=== PATIENT | male | born 1990 | race Caucasian/White ===

== ENCOUNTER 2016-10-28 07:11 | Emergency (ER) | payer SELFPAY ==
[~2016-10-28] VITALS: Ht 179.1 cm; Wt 86.2 kg
--- NOTE | 2016-10-28 07:18 | PHYS DOC ---
Adult General Chief Complaint Chief Complaint: NAUSEA/VOMITING/DIARRHA HPI HPI Patient is a 26 year old male presenting to the emergency department for evaluation of nausea vomiting and dizziness that has been going on since yesterday. Patient says that he vomited 5 times last night and says that it was nonbloody nonbilious. He says that he gets intense dizzy spells where he feels the room is spinning and this makes him nauseated and throw up. 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 Patient denies any past medical history or taking any medications. He says that he has a burning sensation in his epigastrium that radiates up into his chest but is not associated with any shortness of breath or diaphoresis. He denies having any similar symptoms in the past. Review of Systems Review of Systems Constitutional: Denies fever or chills [] Eyes: Denies change in visual acuity, redness, or eye pain [] Respiratory: Denies cough or shortness of breath [] Cardiovascular: No CP GI: + abdominal pain, nausea, vomiting. No bloody stools or diarrhea [] Neurologic: Denies headache, focal weakness. + dizziness Current Medications Current Medications Current Medications Medications (Trade) Dose Ordered Sig/Wilfred Start Time Stop Time Status Last Admin Dose Admin Lorazepam (Ativan) 0.5 mg 1X ONCE 10/28/16 07:30 10/28/16 07:36 DC 10/28/16 07:52 0.5 MG Meclizine HCl (Antivert) 25 mg 1X ONCE 10/28/16 07:30 10/28/16 07:36 DC 10/28/16 07:55 25 MG Multi-Ingredient Mouthwash/Gargle (Gi Cocktail Single Dose) 15 ml 1X ONCE 10/28/16 07:30 10/28/16 07:36 DC 10/28/16 07:56 15 ML Ondansetron HCl (Zofran) 8 mg 1X ONCE 10/28/16 07:30 10/28/16 07:36 DC 10/28/16 07:51 8 MG Sodium Chloride 1,000 ml @ 1,000 mls/hr 1X ONCE 10/28/16 07:30 10/28/16 08:29 10/28/16 07:47 1,000 MLS/HR Allergies Allergies Allergies Coded Allergies Type Severity Reaction Last Updated Verified No Known Drug Allergies 10/28/16 No Physical Exam Physical Exam Constitutional: Well developed, well nourished, no acute distress, non-toxic appearance. [] HENT: Normocephalic, atraumatic, bilateral external ears normal, oropharynx moist, no oral exudates, nose normal. [] Eyes: PERRLA, EOMI, conjunctiva normal, no discharge. [] Cardiovascular:Heart rate regular rhythm, no murmur [] Lungs & Thorax: Bilateral breath sounds clear to auscultation [] Abdomen: Bowel sounds normal, soft, + epigastric tenderness, no rebound or guarding, no masses, no pulsatile masses. [] Skin: Warm, dry, no erythema, no rash. [] Neurologic: Alert and oriented X 3, normal motor function, normal sensory function, no focal deficits noted. [] Current Patient Data Vital Signs Vital Signs Date Time Temp Pulse Resp B/P (MAP) Pulse Ox O2 Delivery O2 Flow Rate FiO2 10/28/16 08:06 54 16 121/55 (77) 98 Room Air 10/28/16 07:20 98.5 98.5 Lab Values Laboratory Tests Test 10/28/16 07:38 White Blood Count 6.7 x10^3/uL (4.0-11.0) Red Blood Count 4.39 x10^6/uL (4.30-5.70) Hemoglobin 14.2 g/dL (13.0-17.5) Hematocrit 41.6 % (39.0-53.0) Mean Corpuscular Volume 95 fL (79-100) Mean Corpuscular Hemoglobin 32 pg (25-35) Mean Corpuscular Hemoglobin Concent 34 g/dL (31-37) Red Cell Distribution Width 13.2 % (11.5-14.5) Platelet Count 171 x10^3/uL (140-400) Neutrophils (%) (Auto) 54 % (31-73) Lymphocytes (%) (Auto) 32 % (24-48) Monocytes (%) (Auto) 10 % (0-9) H Eosinophils (%) (Auto) 3 % (0-3) Basophils (%) (Auto) 1 % (0-3) Neutrophils # (Auto) 3.6 x10^3uL (1.8-7.7) Lymphocytes # (Auto) 2.1 x10^3/uL (1.0-4.8) Monocytes # (Auto) 0.7 x10^3/uL (0.0-1.1) Eosinophils # (Auto) 0.2 x10^3/uL (0.0-0.7) Basophils # (Auto) 0.1 x10^3/uL (0.0-0.2) Sodium Level 139 mmol/L (136-145) Potassium Level 3.7 mmol/L (3.5-5.1) Chloride Level 103 mmol/L (98-107) Carbon Dioxide Level 29 mmol/L (21-32) Anion Gap 7 (6-14) Blood Urea Nitrogen 20 mg/dL (8-26) Creatinine 1.0 mg/dL (0.7-1.3) Estimated GFR (Cockcroft-Gault) 91.0 BUN/Creatinine Ratio 20 (6-20) Glucose Level 100 mg/dL (70-99) H Calcium Level 9.0 mg/dL (8.5-10.1) Magnesium Level 2.0 mg/dL (1.8-2.4) Total Bilirubin 0.4 mg/dL (0.2-1.0) Aspartate Amino Transferase (AST) 26 U/L (15-37) Alanine Aminotransferase (ALT) 30 U/L (16-63) Alkaline Phosphatase 47 U/L (46-116) Creatine Kinase 549 U/L (39-308) H Total Protein 6.6 g/dL (6.4-8.2) Albumin 3.8 g/dL (3.4-5.0) Albumin/Globulin Ratio 1.4 (1.0-1.7) Lipase 1096 U/L (73-393) H Ethyl Alcohol Level < 10 mg/dL (0-10) Laboratory Tests 10/28/16 07:38 Laboratory Tests 10/28/16 07:38 EKG EKG Sinus bradycardia at 47 bpm with normal axis normal intervals with no ST elevation or depression and normal T waves. Radiology/Procedures Radiology/Procedures [] Course & Med Decision Making Course & Med Decision Making Patient symptoms are consistent with peripheral vertigo. We'll check labs EKG and reassess. Labs are mostly unremarkable except for elevated lipase level. He says that he does drink alcohol and does not eat a very good diet. Patient told that he should rest his GI tract and only drink water and Gatorade today and to avoid alcohol. He has no right upper quadrant tenderness on exam but he does have some mild epigastric tenderness but no rebound or guarding. Patient says his dizziness is much better after treatment here and he is able to drink fluids without any difficulty so he'll be discharged with diet instructions addition to Prilosec Zofran [place] and meclizine. Patient says he is traveling from [place] and I told him that he needs to follow with a primary care provider later this week and go to the nearest emergency department with worsening pain fevers vomiting or general concerns. Patient aware and agreeable with plan and verbalized understanding of the above instructions. Dragon Disclaimer Gabriellaon Disclaimer This electronic medical record was generated, in whole or in part, using a voice recognition dictation system. Departure Departure Impression: Primary Impression: Vertigo Additional Impression: Pancreatitis Disposition: 01 HOME, SELF-CARE Condition: GOOD Patient Instructions: Acute Pancreatitis, Benign Positional Vertigo Additional Instructions: DRINK ONLY WATER AND GATORADE TODAY. WHEN YOU START EATING AGAIN, EAT SOFT NON- IRRITATING FOODS. FOLLOW WITH A PCP AND/OR GI DOCTOR IN THE NEXT 1-2 WEEKS AND COME BACK TO THE ED SOONER WITH ANY NEW OR WORSENING PAIN, FEVERS, VOMITING, OR OTHER GENERAL CONCERNS. THANK YOU! Scripts Meclizine Hcl (MECLIZINE HCL) 25 Mg Tablet 1 TAB PO PRN TID Y for VERTIGO, #12 TAB Prov: MARY LOO DO 10/28/16 Omeprazole Magnesium (PRILOSEC OTC) 20 Mg Tablet.dr 1 TAB PO DAILY, #30 TAB 2 Refills Prov: MARY LOO DO 10/28/16 Ondansetron (ZOFRAN ODT) 4 Mg Tab.rapdis 4 MG PO BID Y for NAUSEA/VOMITING, #10 TAB Prov: MARY LOO DO 10/28/16 Hydrocodone/Apap 5-325 (NORCO 5-325 TABLET) 1 Each Tablet 1 TAB PO PRN Q6HRS Y for PAIN, #14 TAB 0 Refills Prov: MARY LOO DO 10/28/16 Problem Qualifiers MARY LOO DO October 28, 2016 07:17
[2016-10-28] MEDS ORDERED: IV NORMAL SALINE 1000ML BAG 1,000 ML IV ONE (07:30)
[2016-10-28] MEDS ORDERED: ONDANSETRON PF 4 MG/2 ML VIAL. IV ONE (07:30)
[2016-10-28] MEDS ORDERED: MECLIZINE HCL 12.5 MG TABLET. PO ONE (07:30)
[2016-10-28] MEDS ORDERED: LIDO:MAALOX:DONNATAL 1:1:1 15 ML SINGLE DOSE SWSW ONE (07:30)
[2016-10-28 08:04] LABS: BASO # 0.1 x10^3/uL (0.0-0.2); BASO % 1 % (0-3); EOS % 3 % (0-3); HEMATOCRIT 41.6 % (39.0-53.0); HEMOGLOBIN 14.2 g/dL (13.0-17.5); LYMPH # 2.1 x10^3/uL (1.0-4.8); LYMPH % 32 % (24-48); MEAN CORPUSCULAR HEMOGLOBIN 32 pg (25-35); MEAN CORPUSCULAR HGB CONC 34 g/dL (31-37); MEAN CORPUSCULAR VOLUME 95 fL (79-100); MONO % 10 % (0-9); NEUT % 54 % (31-73); PLATELET COUNT 171 x10^3/uL (140-400); RED BLOOD COUNT 4.39 x10^6/uL (4.30-5.70); RED CELL DISTRIBUTION WIDTH 13.2 % (11.5-14.5); WHITE BLOOD COUNT 6.7 x10^3/uL (4.0-11.0)
[2016-10-28 08:07] LABS: POTASSIUM 3.7 mmol/L (3.5-5.1)
[2016-10-28 08:14] LABS: ALBUMIN 3.8 g/dL (3.4-5.0); ALBUMIN/GLOBULIN RATIO 1.4 (1.0-1.7); TOTAL BILIRUBIN 0.4 mg/dL (0.2-1.0); TOTAL PROTEIN 6.6 g/dL (6.4-8.2)
--- NOTE | 2016-10-28 08:22 | EKG ---
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
[2016-10-28] MEDS ORDERED: MECL25TA3 PO (08:25)
[2016-10-28] MEDS ORDERED: OMEP20TA63 PO (08:25)
[2016-10-28] MEDS ORDERED: ONDA4TAB10 PO (08:25)
[2016-10-28] MEDS ORDERED: HYDR-971 PO (08:25)
[2016-10-28 09:25] VITALS: BP 112/69
[2016-10-31] MEDS ORDERED: HYDR-971 PO (10:17)
== END 2016-10-28 09:29 | disposition home or self-care (01) ==
LOC: ER 08:02
DX: K85.90 Acute pancreatitis without necrosis or infection, unspecified (principal); R42 Dizziness and giddiness
CPT/HCPCS: 36415; 80053; 80320; 82550; 83690; 83735; 85027; 93005; 96361; 96374; 96375; 99285; J2060; J2405; J7030; J8597; G0480

== ENCOUNTER 2016-10-30 10:25 | Inpatient (IN) | payer SELFPAY ==
[~2016-10-30] VITALS: Ht 177.8 cm; Wt 86.2 kg
[2016-10-30] VITALS (9 sets, daily range): BP systolic 128–139; BP diastolic 67–80
[~2016-10-30 10:25] MED LIST: HYDR-971 PO; MECL25TA3 PO; OMEP20TA63 PO; ONDA4TAB10 PO
--- NOTE | 2016-10-30 11:13 | PHYS DOC ---
Past Medical History Past Medical History: Asthma, Pancreatitis, Other Additional Past Medical Histor: hypoglycemia, "borderline diabetic" Past Surgical History: Other Additional Past Surgical Histo: left hand fracture Alcohol Use: Occasionally Drug Use: Marijuana Adult General Chief Complaint Chief Complaint: NAUSEA/VOMITING/DIARRHA HPI HPI Patient is a 26 year old male who presents with vomiting with blood greater than 1 cup, burning upper abdominal pain. Denies black tarry stools. No h/o PUD known. Seen on 10/28 and diagnosed with pancreatitis but dc'd home as pt feeling ok. Symptoms worsen at this time. Denies recent etoh, reports only occasional etoh. Denies previous abdominal surgeries. Refused rectal exam Review of Systems Review of Systems Constitutional: Denies fever or chills [] Eyes: Denies change in visual acuity, redness, or eye pain [] HENT: Denies nasal congestion or sore throat [] Respiratory: Denies cough or shortness of breath [] Cardiovascular: No additional information not addressed in HPI [] GI: per hpi : Denies dysuria or hematuria [] Musculoskeletal: Denies back pain or joint pain [] Integument: Denies rash or skin lesions [] Neurologic: Denies headache, focal weakness or sensory changes [] Endocrine: Denies polyuria or polydipsia [] Current Medications Current Medications Current Medications Medications (Trade) Dose Ordered Sig/Wilfred Start Time Stop Time Status Last Admin Dose Admin Bupivacaine HCl/ Epinephrine Bitart (Marcaine-Epi 0.5%-[id number]) 50 ml STK-MED ONCE 10/30/16 13:15 10/30/16 13:16 DC Cellulose 1 each STK-MED ONCE 10/30/16 13:13 10/30/16 13:14 DC Famotidine (Pepcid) 20 mg BID 10/30/16 21:00 Fentanyl Citrate (Fentanyl 2ml Vial) 50 mcg PRN Q5MIN PRN 10/30/16 13:15 10/31/16 13:14 Hydromorphone HCl (Dilaudid) 0.5 mg PRN Q10MIN PRN 10/30/16 13:15 10/31/16 13:14 Iohexol (Omnipaque 300 Mg/ml) 50 ml STK-MED ONCE 10/30/16 13:13 10/30/16 13:14 DC Lidocaine HCl 2 ml PRN 1X PRN 10/30/16 13:15 10/31/16 13:14 Morphine Sulfate 1 mg PRN Q10MIN PRN 10/30/16 13:15 10/31/16 13:14 Nicotine (Nicoderm Cq 21mg) 1 patch PRN DAILY PRN 10/30/16 13:45 Nicotine Polacrilex (Nicorette Gum) 1 each PRN Q1HR PRN 10/30/16 13:45 Ondansetron HCl (Zofran) 4 mg PRN Q6HRS PRN 10/30/16 13:15 10/31/16 13:14 Prochlorperazine Edisylate (Compazine) 5 mg PACU PRN PRN 10/30/16 13:15 10/31/16 13:14 Ringer's Solution 1,000 ml @ 0 mls/hr Q0M 10/30/16 13:04 10/30/16 13:12 DC Sodium Chloride 1,000 ml @ 125 mls/hr CONT PRN 10/30/16 13:15 Allergies Allergies Allergies Coded Allergies Type Severity Reaction Last Updated Verified No Known Drug Allergies 10/28/16 No Physical Exam Physical Exam Constitutional: Well developed, well nourished, no acute distress, non-toxic appearance. [] HENT: Normocephalic, atraumatic, bilateral external ears normal, oropharynx moist, no oral exudates, nose normal. [] Eyes: PERRLA, EOMI, conjunctiva normal, no discharge. [] Neck: Normal range of motion, no tenderness, supple, no stridor. [] Cardiovascular:Heart rate regular with regular rhythm, no murmur [] Lungs & Thorax: Bilateral breath sounds clear to auscultation [] Abdomen: Bowel sounds normal, soft, nondistended, TTP LUQ and epigastric region , neg murphys on my exam, no guarding or peritoneal signs. Skin: Warm, dry, no erythema, no rash. [] Back: No tenderness, no CVA tenderness. [] Extremities: No tenderness, no cyanosis, no clubbing, ROM intact, no edema. [] Neurologic: Alert and oriented X 3, normal motor function, normal sensory function, no focal deficits noted. [] Current Patient Data Vital Signs Vital Signs Date Time Temp Pulse Resp B/P (MAP) Pulse Ox O2 Delivery O2 Flow Rate FiO2 5/17/17 13:43 20 15 Room Air 10/30/16 13:14 54 127/71 (89) 10/30/16 10:30 98.3 98.3 Lab Values Laboratory Tests Test 10/30/16 11:00 White Blood Count 5.6 x10^3/uL (4.0-11.0) Red Blood Count 4.47 x10^6/uL (4.30-5.70) Hemoglobin 14.5 g/dL (13.0-17.5) Hematocrit 42.0 % (39.0-53.0) Mean Corpuscular Volume 94 fL (79-100) Mean Corpuscular Hemoglobin 32 pg (25-35) Mean Corpuscular Hemoglobin Concent 35 g/dL (31-37) Red Cell Distribution Width 13.0 % (11.5-14.5) Platelet Count 166 x10^3/uL (140-400) Neutrophils (%) (Auto) 66 % (31-73) Lymphocytes (%) (Auto) 26 % (24-48) Monocytes (%) (Auto) 5 % (0-9) Eosinophils (%) (Auto) 2 % (0-3) Basophils (%) (Auto) 1 % (0-3) Neutrophils # (Auto) 3.7 x10^3uL (1.8-7.7) Lymphocytes # (Auto) 1.5 x10^3/uL (1.0-4.8) Monocytes # (Auto) 0.3 x10^3/uL (0.0-1.1) Eosinophils # (Auto) 0.1 x10^3/uL (0.0-0.7) Basophils # (Auto) 0.0 x10^3/uL (0.0-0.2) Sodium Level 140 mmol/L (136-145) Potassium Level 4.4 mmol/L (3.5-5.1) Chloride Level 106 mmol/L (98-107) Carbon Dioxide Level 28 mmol/L (21-32) Anion Gap 6 (6-14) Blood Urea Nitrogen 19 mg/dL (8-26) Creatinine 0.9 mg/dL (0.7-1.3) Estimated GFR (Cockcroft-Gault) 102.8 Glucose Level 98 mg/dL (70-99) Calcium Level 8.8 mg/dL (8.5-10.1) Total Bilirubin 0.4 mg/dL (0.2-1.0) Direct Bilirubin 0.1 mg/dL (0.0-0.2) Aspartate Amino Transferase (AST) 16 U/L (15-37) Alanine Aminotransferase (ALT) 27 U/L (16-63) Alkaline Phosphatase 49 U/L (46-116) Total Protein 6.9 g/dL (6.4-8.2) Albumin 3.8 g/dL (3.4-5.0) Lipase 142 U/L (73-393) Laboratory Tests 10/30/16 11:00 Laboratory Tests 10/30/16 11:00 EKG EKG [] Radiology/Procedures Radiology/Procedures ABd US: Examination: Ultrasound right upper quadrant History: History of pancreatitis. Comparison: None available Findings: The pancreas is not well visualized due to bowel gas. Small echogenicities identified within the gallbladder likely gallstones. The gallbladder wall thickness measures 4 mm , mild thickened Examination is positive for ultrasonographic evidence of [place]'s sign however no evidence of pericholecystic fluid identified. The right kidney measures 11.9 cm in length. The visualized liver grossly appears unremarkable. The visualized IVC appears patent. Impression: Small echogenicities identified within the gallbladder likely gallstones. There is mild thickened appearance of the gallbladder wall. Examination is positive ultrasonographic evidence of [place]'s and however no evidence of pericholecystic fluid identified. Cholecystitis is not completely excluded. Course & Med Decision Making Course & Med Decision Making Pertinent Labs and Imaging studies reviewed. (See chart for details) Pt given IV pain meds, antiemetics, IV fluids. Lipase now improved however abd US abnormal and with recent pancreatitis, I contacted Dr. West to discuss. She agrees and recommends admission for cholecystectomy. I discussed with pt and he is agreeable. No clear sign of infection at this time and antibiotics not given. Pt NPO, accepted for admission by Dr. Cha. Janene Disclaimer Janene Disclaimer This electronic medical record was generated, in whole or in part, using a voice recognition dictation system. Departure Departure Impression: Primary Impression: Cholecystitis Disposition: 09 ADMITTED INPATIENT Admitting Physician: Chantel Cha Condition: STABLE Referrals: NO PCP (PCP) KASSANDRA FROST MD October 30, 2016 11:13
[2016-10-30] MEDS ORDERED: fentaNYL PF VIAL 100 MCG/2 ML VIAL IV ONE (11:15)
[2016-10-30] MEDS ORDERED: IV NORMAL SALINE 1000ML BAG 1,000 ML IV ONE ×2 (11:15→12:45)
[2016-10-30] MEDS ORDERED: FAMOTIDINE 20 MG/2 ML VIAL IVP ONE (11:15)
[2016-10-30] MEDS ORDERED: ONDANSETRON PF 4 MG/2 ML VIAL. IV ONE (11:15)
[2016-10-30 11:24] LABS: BASO % 1 % (0-3); EOS % 2 % (0-3); HEMOGLOBIN 14.5 g/dL (13.0-17.5); LYMPH # 1.5 x10^3/uL (1.0-4.8); LYMPH % 26 % (24-48); MEAN CORPUSCULAR HEMOGLOBIN 32 pg (25-35); MEAN CORPUSCULAR HGB CONC 35 g/dL (31-37); MEAN CORPUSCULAR VOLUME 94 fL (79-100); MONO % 5 % (0-9); NEUT % 66 % (31-73); PLATELET COUNT 166 x10^3/uL (140-400); RED BLOOD COUNT 4.47 x10^6/uL (4.30-5.70); WHITE BLOOD COUNT 5.6 x10^3/uL (4.0-11.0)
[2016-10-30 11:34] LABS: CALCIUM 8.8 mg/dL (8.5-10.1); CREATININE 0.9 mg/dL (0.7-1.3); GFR 102.8; POTASSIUM 4.4 mmol/L (3.5-5.1)
[2016-10-30 11:41] LABS: ALBUMIN 3.8 g/dL (3.4-5.0); DIRECT BILIRUBIN 0.1 mg/dL (0.0-0.2); TOTAL BILIRUBIN 0.4 mg/dL (0.2-1.0); TOTAL PROTEIN 6.9 g/dL (6.4-8.2)
--- NOTE | 2016-10-30 12:04 | RAD ---
Examination: Ultrasound right upper quadrant History: History of pancreatitis. Comparison: None available Findings: The pancreas is not well visualized due to bowel gas. Small echogenicities identified within the gallbladder likely gallstones. The gallbladder wall thickness measures 4 mm , mild thickened Examination is positive for ultrasonographic evidence of [place]'s sign however no evidence of pericholecystic fluid identified. The right kidney measures 11.9 cm in length. The visualized liver grossly appears unremarkable. The visualized IVC appears patent. Impression: Small echogenicities identified within the gallbladder likely gallstones. There is mild thickened appearance of the gallbladder wall. Examination is positive ultrasonographic evidence of [place]'s and however no evidence of pericholecystic fluid identified. Cholecystitis is not completely excluded.
[2016-10-30] MEDS ORDERED: ONDANSETRON PF 4 MG/2 ML VIAL. IV PRN ×2 (12:45→13:15)
[2016-10-30] MEDS ORDERED: IV RINGERS,LACTATED 1000ML 1,000 ML IV SCH (13:04)
[2016-10-30] MEDS ORDERED: SURGICEL HEMOSTAT 4X8 EACH. ONE (13:13)
[2016-10-30] MEDS ORDERED: IOHEXOL 300 MG/ML 50 ML VIAL. ONE (13:13)
[2016-10-30] MEDS ORDERED: HYDROmorphone 2 MG/ML VIAL IV PRN (13:15)
[2016-10-30] MEDS ORDERED: LIDOCAINE 1% 1 ML SYRINGE. ID PRN (13:15)
[2016-10-30] MEDS ORDERED: fentaNYL PF VIAL 100 MCG/2 ML VIAL IV PRN (13:15)
[2016-10-30] MEDS ORDERED: IV NORMAL SALINE 1000ML BAG 1,000 ML IV PRN (13:15)
[2016-10-30] MEDS ORDERED: BUPIVACAINE-EPI 0.5%-1:200000 50 ML VIAL. ONE (13:15)
[2016-10-30] MEDS ORDERED: MORPHINE SULFATE 2 MG/ML DISP.SYRIN. IV PRN (13:15)
[2016-10-30] MEDS ORDERED: PROCHLORPERAZINE 10 MG/2 ML VIAL. IV PRN (13:15)
[2016-10-30] MEDS: MORPHINE SULFATE 4 MG/ML DISP.SYRIN. IV PRN ×2 (13:43→17:55)
[2016-10-30] MEDS ORDERED: NICOTINE 21MG PATCH. TD PRN (13:45)
[2016-10-30] MEDS ORDERED: NICOTINE POLACRILEX 2MG GUM PACKAGE of 12. BC PRN (13:45)
--- NOTE | 2016-10-30 13:52 | PDOC1 ---
History and Physical Date of Admission Date of Admission DATE: 10/30/16 TIME: 13:37 Identification/Chief Complaint Chief Complaint hematemesis, abd pain Problems: Source Source: Chart review, Patient History of Present Illness History of Present Illness Mr. Crowley, is a 26 year old male admit with acute hematemesis X1, , acute and burning upper abdominal pain. Burning pain, intermittent but severe, pain 9/10, better with IV morphine given in ER. 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 [employer], Past Medical History Cardiovascular: No pertinent hx Pulmonary: No pertinent hx GI: No pertinent hx Heme/Onc: No pertinent hx Hepatobiliary: No pertinent hx Psych: No pertinent hx, Other (tobacco only) Rheumatologic: No pertinent hx Infectious disease: No pertinent hx Family History Family History: Hypertension Social History Smoke: 1 pack per day ALCOHOL: social Drugs: None Current Medications Current Medications Current Medications Ondansetron HCl (Zofran) 4 mg 1X ONCE IV Last administered on 10/30/16 11:55 ; Start 10/30/16 at 11:15; Stop 10/30/16 at 11:16; Status DC Sodium Chloride 1,000 ml @ 1,000 mls/hr 1X ONCE IV Last administered on 11:55; Start 10/30/16 at 11:15; Stop 10/30/16 at 12:14; Status DC Famotidine (Pepcid) 20 mg 1X ONCE IVP Last administered on 10/30/16 11:56; Start 10/30/16 at 11:15; Stop 10/30/16 at 11:16; Status DC Fentanyl Citrate (Fentanyl 2ml Vial) 50 mcg 1X ONCE IV Last administered on 11:55; Start 10/30/16 at 11:15; Stop 10/30/16 at 11:16; Status DC Ondansetron HCl (Zofran) 4 mg PRN Q8HRS PRN IV NAUSEA/VOMITING; Start 10/30/16 at 12:45; Stop 10/31/16 at 12:44 Morphine Sulfate 4 mg PRN Q2HR PRN IV PAIN; Start 10/30/16 at 12:45; Stop 10/31 at 12:44 Sodium Chloride 1,000 ml @ 125 mls/hr 1X ONCE IV ; Start 10/30/16 at 12:45; Stop 10/30/16 at 20:44 Ondansetron HCl (Zofran) 4 mg PRN Q6HRS PRN IV NAUSEA/VOMITING; Start 10/30/16 at 13:15; Stop 10/31/16 at 13:14 Fentanyl Citrate (Fentanyl 2ml Vial) 25 mcg PRN Q5MIN PRN IV MILD PAIN; Start 10/30/16 at 13:15; Stop 10/31/16 at 13:14 Fentanyl Citrate (Fentanyl 2ml Vial) 50 mcg PRN Q5MIN PRN IV MODERATE PAIN; Start 10/30/16 at 13:15; Stop 10/31/16 at 13:14 Morphine Sulfate 1 mg PRN Q10MIN PRN IV SEVERE PAIN; Start 10/30/16 at 13:15; Stop 10/31/16 at 13:14 Ringer's Solution 1,000 ml @ 0 mls/hr Q0M IV ; Start 10/30/16 at 13:04; Stop at 13:12; Status DC Lidocaine HCl 2 ml PRN 1X PRN ID PRIOR TO IV START; Start 10/30/16 at 13:15; Stop 10/31/16 at 13:14 Hydromorphone HCl (Dilaudid) 0.5 mg PRN Q10MIN PRN IV SEV PAIN, Second choice; Start 10/30/16 at 13:15; Stop 10/31/16 at 13:14 Prochlorperazine Edisylate (Compazine) 5 mg PACU PRN PRN IV NAUSEA, MRX1; Start 10/30/16 at 13:15; Stop 10/31/16 at 13:14 Famotidine (Pepcid) 20 mg BID IVP ; Start 10/30/16 at 21:00 Sodium Chloride 1,000 ml @ 125 mls/hr CONT PRN IV .; Start 10/30/16 at 13:15 Cellulose 1 each STK-MED ONCE .ROUTE ; Start 10/30/16 at 13:13; Stop 10/30/16 at 13:14; Status DC Iohexol (Omnipaque 300 Mg/ml) 50 ml STK-MED ONCE .ROUTE ; Start 10/30/16 at 13: 13; Stop 10/30/16 at 13:14; Status DC Bupivacaine HCl/ Epinephrine Bitart (Marcaine-Epi 0.5%-1:[id number]) 50 ml STK-MED ONCE .ROUTE ; Start 10/30/16 at 13:15; Stop 10/30/16 at 13:16; Status DC Active Scripts Active Meclizine Hcl 25 Mg Tablet 1 Tab PO PRN TID PRN Prilosec Otc (Omeprazole Magnesium) 20 Mg Tablet.dr 1 Tab PO DAILY Zofran Odt (Ondansetron) 4 Mg Tab.rapdis 4 Mg PO BID PRN [place] 5-325 Tablet (Acetaminophen/Hydrocodone Bitart) 1 Each Tablet 1 Tab PO PRN Q6HRS PRN Allergies Allergies: Coded Allergies: No Known Drug Allergies (Unverified , 10/28/16) ROS General: YES: Appetite, No: Chills, Night Sweats, Fatigue, Malaise, Other PSYCHOLOGICAL ROS: No: Anxiety, Behavioral Disorder, Concentration difficultie , Decreased libido, Depression, Disorientation, Hallucinations, Hostility, Irritablity, Memory difficulties, Mood Swings, Obsessive thoughts, Physical abuse, Sexual abuse, Sleep disturbances, Suicidal ideation, Other Eyes: No Blurry vision, No Decreased vision, No Double vision, No Dry eyes, No Excessive tearing, No Eye Pain, No Itchy Eyes, No Loss of vision, No Photophobia , No Scotomata, No Uses contacts, No Uses glasses, No Other HEENT: No: Heacaches, Visual Changes, Hearing change, Nasal congestion, Nasal discharge, Oral lesions, Sinus pain, Sore Throat, Epistaxis, Sneezing, Snoring, Tinnitus, Vertigo, Vocal changes, Other Respiratory: No: Cough, Hemoptysis, Orthopnea, Pleuritic Pain, Shortness of breath, SOB with excertion, Sputum Changes, Stridor, Tachypnea, Wheezing, Other Cardiovascular: No Chest Pain, No Palpitations, No Orthopnea, No Paroxysmal Noc. Dyspnea, No Edema, No Lt Headedness, No Other Gastrointestinal: Yes Vomiting, Yes Other (hematemesis) Musculoskeletal: No Gait Disturbance, No Joint Pain, No Joint Stiffness, No Joint Swelling, No Muscle Pain, No Muscular Weakness, No Pain In:, No Swelling In:, No Other Neurological: No Behavorial Changes, No Bowel/Bladder ControlChng, No Confusion , No Dizziness, No Gait Disturbance, No Headaches, No Impaired Coord/balance, No Memory Loss, No Numbness/Tingling, No Seizures, No Speech Problems, No Tremors, No Visual Changes, No Weakness, No Other Skin: No Dry Skin, No Eczema, No Hair Changes, No Lumps, No Mole Changes, No Mottling, No Nail Changes, No Pruritus, No Rash, No Skin Lesion Changes, No Other, No Acne Physical Exam General: Alert, Oriented X3, Cooperative HEENT: Atraumatic, PERRLA Lungs: Clear to auscultation Abdomen: Normal bowel sounds, Soft, Other (tender) Rectal Exam: not examined Extremities: No clubbing, No cyanosis, No edema, Normal pulses Skin: Other ([place] tattoos) Neuro: Normal speech, Normal tone, Sensation intact Psych/Mental Status: Mental status NL, Mood NL Vitals Vitals Vital Signs Date Time Temp Pulse Resp B/P (MAP) Pulse Ox O2 Delivery O2 Flow Rate FiO2 10/30/16 13:14 54 14 127/71 (89) 99 Room Air 10/30/16 10:30 98.3 98.3 Labs Labs Laboratory Tests Test 10/30/16 11:00 White Blood Count 5.6 x10^3/uL (4.0-11.0) Red Blood Count 4.47 x10^6/uL (4.30-5.70) Hemoglobin 14.5 g/dL (13.0-17.5) Hematocrit 42.0 % (39.0-53.0) Mean Corpuscular Volume 94 fL (79-100) Mean Corpuscular Hemoglobin 32 pg (25-35) Mean Corpuscular Hemoglobin Concent 35 g/dL (31-37) Red Cell Distribution Width 13.0 % (11.5-14.5) Platelet Count 166 x10^3/uL (140-400) Neutrophils (%) (Auto) 66 % (31-73) Lymphocytes (%) (Auto) 26 % (24-48) Monocytes (%) (Auto) 5 % (0-9) Eosinophils (%) (Auto) 2 % (0-3) Basophils (%) (Auto) 1 % (0-3) Neutrophils # (Auto) 3.7 x10^3uL (1.8-7.7) Lymphocytes # (Auto) 1.5 x10^3/uL (1.0-4.8) Monocytes # (Auto) 0.3 x10^3/uL (0.0-1.1) Eosinophils # (Auto) 0.1 x10^3/uL (0.0-0.7) Basophils # (Auto) 0.0 x10^3/uL (0.0-0.2) Sodium Level 140 mmol/L (136-145) Potassium Level 4.4 mmol/L (3.5-5.1) Chloride Level 106 mmol/L (98-107) Carbon Dioxide Level 28 mmol/L (21-32) Anion Gap 6 (6-14) Blood Urea Nitrogen 19 mg/dL (8-26) Creatinine 0.9 mg/dL (0.7-1.3) Estimated GFR (Cockcroft-Gault) 102.8 Glucose Level 98 mg/dL (70-99) Calcium Level 8.8 mg/dL (8.5-10.1) Total Bilirubin 0.4 mg/dL (0.2-1.0) Direct Bilirubin 0.1 mg/dL (0.0-0.2) Aspartate Amino Transf (AST/SGOT) 16 U/L (15-37) Alanine Aminotransferase (ALT/SGPT) 27 U/L (16-63) Alkaline Phosphatase 49 U/L (46-116) Total Protein 6.9 g/dL (6.4-8.2) Albumin 3.8 g/dL (3.4-5.0) Lipase 142 U/L (73-393) Laboratory Tests Test 10/30/16 11:00 White Blood Count 5.6 x10^3/uL (4.0-11.0) Red Blood Count 4.47 x10^6/uL (4.30-5.70) Hemoglobin 14.5 g/dL (13.0-17.5) Hematocrit 42.0 % (39.0-53.0) Mean Corpuscular Volume 94 fL (79-100) Mean Corpuscular Hemoglobin 32 pg (25-35) Mean Corpuscular Hemoglobin Concent 35 g/dL (31-37) Red Cell Distribution Width 13.0 % (11.5-14.5) Platelet Count 166 x10^3/uL (140-400) Neutrophils (%) (Auto) 66 % (31-73) Lymphocytes (%) (Auto) 26 % (24-48) Monocytes (%) (Auto) 5 % (0-9) Eosinophils (%) (Auto) 2 % (0-3) Basophils (%) (Auto) 1 % (0-3) Neutrophils # (Auto) 3.7 x10^3uL (1.8-7.7) Lymphocytes # (Auto) 1.5 x10^3/uL (1.0-4.8) Monocytes # (Auto) 0.3 x10^3/uL (0.0-1.1) Eosinophils # (Auto) 0.1 x10^3/uL (0.0-0.7) Basophils # (Auto) 0.0 x10^3/uL (0.0-0.2) Sodium Level 140 mmol/L (136-145) Potassium Level 4.4 mmol/L (3.5-5.1) Chloride Level 106 mmol/L (98-107) Carbon Dioxide Level 28 mmol/L (21-32) Anion Gap 6 (6-14) Blood Urea Nitrogen 19 mg/dL (8-26) Creatinine 0.9 mg/dL (0.7-1.3) Estimated GFR (Cockcroft-Gault) 102.8 Glucose Level 98 mg/dL (70-99) Calcium Level 8.8 mg/dL (8.5-10.1) Total Bilirubin 0.4 mg/dL (0.2-1.0) Direct Bilirubin 0.1 mg/dL (0.0-0.2) Aspartate Amino Transf (AST/SGOT) 16 U/L (15-37) Alanine Aminotransferase (ALT/SGPT) 27 U/L (16-63) Alkaline Phosphatase 49 U/L (46-116) Total Protein 6.9 g/dL (6.4-8.2) Albumin 3.8 g/dL (3.4-5.0) Lipase 142 U/L (73-393) VTE Prophylaxis Ordered VTE Prophylaxis Devices: Yes VTE Pharmacological Prophylaxi: Contraindicated Assessment/Plan Assessment/Plan pancreatitis cholecystitis nausea and vomiting hematemesis, possible minoo fernández tear, but maybe GERD, start IV PPI and consult GI tobaccoism, patch and gum consult surg for keegan, FERNANDA Newton MD October 30, 2016 13:52
[2016-10-30] MEDS ORDERED: fentaNYL PF VIAL 250 MCG/5 ML VIAL ONE (14:13)
[2016-10-30] MEDS ORDERED: ROCURONIUM 50 MG/5 ML VIAL. ONE (14:13)
[2016-10-30] MEDS ORDERED: LIDOCAINE 2% PF Vial for OR 5 ML VIAL. ONE (14:14)
[2016-10-30] MEDS ORDERED: PROPOFOL 20 ML IV ONE ×2 (14:14→16:27)
[2016-10-30] MEDS ORDERED: ISOFLURANE 61 TO 120 MINUTES. IH ONE (14:14)
[2016-10-30] MEDS ORDERED: ONDANSETRON PF 4 MG/2 ML VIAL. ONE (14:14)
[2016-10-30] MEDS ORDERED: DEXAMETHASONE SOD PHOS 20 MG/5 ML VIAL. ONE (14:14)
--- NOTE | 2016-10-30 14:37 | PDOC2 ---
JAY PARKER ELECTRICAL TEST TECHNICIAN 10/30/16 1437: CONSULT Date of Consult Date of Consult DATE: 10/30/16 TIME: 14:32 Reason for Consult Reason for Consult: cholelithiasis Referring Physician Referring Physician: ER Identification/Chief Complaint Chief Complaint abdominal pain Source Source: Chart review, Patient History of Present Illness Reason for Visit: here 2 days ago with abdominal pain, epigastric, burning, found to have pancreatitis. Discharged home, yesterday felt better, but today was dizzy, had 1 episode of hematemesis and severe burning epigastric pain that radiated to his right abdomen. prior to this he has never had any similar pain in past. Can not tell me any aggravating factors, alleviating factors are meds and Gatorade. 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: social Drugs: Marijuana Lives: Alone Current Medications Current Medications Current Medications Ondansetron HCl (Zofran) 4 mg 1X ONCE IV Last administered on 10/30/16 11:55 ; Start 10/30/16 at 11:15; Stop 10/30/16 at 11:16; Status DC Sodium Chloride 1,000 ml @ 1,000 mls/hr 1X ONCE IV Last administered on 11:55; Start 10/30/16 at 11:15; Stop 10/30/16 at 12:14; Status DC Famotidine (Pepcid) 20 mg 1X ONCE IVP Last administered on 10/30/16 11:56; Start 10/30/16 at 11:15; Stop 10/30/16 at 11:16; Status DC Fentanyl Citrate (Fentanyl 2ml Vial) 50 mcg 1X ONCE IV Last administered on 11:55; Start 10/30/16 at 11:15; Stop 10/30/16 at 11:16; Status DC Ondansetron HCl (Zofran) 4 mg PRN Q8HRS PRN IV NAUSEA/VOMITING; Start 10/30/16 at 12:45; Stop 10/31/16 at 12:44 Morphine Sulfate 4 mg PRN Q2HR PRN IV PAIN Last administered on 10/30/16t 13:43 ; Start 10/30/16 at 12:45; Stop 10/31/16 at 12:44 Sodium Chloride 1,000 ml @ 125 mls/hr 1X ONCE IV Last administered on t 13:43; Start 10/30/16 at 12:45; Stop 10/30/16 at 20:44 Ondansetron HCl (Zofran) 4 mg PRN Q6HRS PRN IV NAUSEA/VOMITING; Start 10/30/16 at 13:15; Stop 10/31/16 at 13:14 Fentanyl Citrate (Fentanyl 2ml Vial) 25 mcg PRN Q5MIN PRN IV MILD PAIN; Start 10/30/16 at 13:15; Stop 10/31/16 at 13:14 Fentanyl Citrate (Fentanyl 2ml Vial) 50 mcg PRN Q5MIN PRN IV MODERATE PAIN; Start 10/30/16 at 13:15; Stop 10/31/16 at 13:14 Morphine Sulfate 1 mg PRN Q10MIN PRN IV SEVERE PAIN; Start 10/30/16 at 13:15; Stop 10/31/16 at 13:14 Ringer's Solution 1,000 ml @ 0 mls/hr Q0M IV ; Start 10/30/16 at 13:04; Stop at 13:12; Status DC Lidocaine HCl 2 ml PRN 1X PRN ID PRIOR TO IV START; Start 10/30/16 at 13:15; Stop 10/31/16 at 13:14 Hydromorphone HCl (Dilaudid) 0.5 mg PRN Q10MIN PRN IV SEV PAIN, Second choice; Start 10/30/16 at 13:15; Stop 10/31/16 at 13:14 Prochlorperazine Edisylate (Compazine) 5 mg PACU PRN PRN IV NAUSEA, MRX1; Start 10/30/16 at 13:15; Stop 10/31/16 at 13:14 Famotidine (Pepcid) 20 mg BID IVP ; Start 10/30/16 at 21:00 Sodium Chloride 1,000 ml @ 125 mls/hr CONT PRN IV .; Start 10/30/16 at 13:15 Cellulose 1 each STK-MED ONCE .ROUTE ; Start 10/30/16 at 13:13; Stop 10/30/16 at 13:14; Status DC Iohexol (Omnipaque 300 Mg/ml) 50 ml STK-MED ONCE .ROUTE ; Start 10/30/16 at 13: 13; Stop 10/30/16 at 13:14; Status DC Bupivacaine HCl/ Epinephrine Bitart (Marcaine-Epi 0.5%-1:117246) 50 ml STK-MED ONCE .ROUTE ; Start 10/30/16 at 13:15; Stop 10/30/16 at 13:16; Status DC Nicotine (Nicoderm Cq 21mg) 1 patch PRN DAILY PRN TD SMOKING CESSATION; Start 10/30/16 at 13:45 Nicotine Polacrilex (Nicorette Gum) 1 each PRN Q1HR PRN BC SMOKING CESSATION; Start 10/30/16 at 13:45 Fentanyl Citrate (Fentanyl 5ml Vial) 250 mcg STK-MED ONCE .ROUTE ; Start at 14:13; Stop 10/30/16 at 14:14; Status DC Rocuronium [place] (Zemuron) 50 mg STK-MED ONCE .ROUTE ; Start 10/30/16 at 14:13 ; Stop 10/30/16 at 14:14; Status DC Propofol 20 ml @ As Directed STK-MED ONCE IV ; Start 10/30/16 at 14:14; Stop at 14:15; Status DC Dexamethasone Sodium Phosphate (Decadron) 20 mg STK-MED ONCE .ROUTE ; Start at 14:14; Stop 10/30/16 at 14:15; Status DC Lidocaine HCl (Lidocaine Pf 2% Vial) 5 ml STK-MED ONCE .ROUTE ; Start 10/30/16 at 14:14; Stop 10/30/16 at 14:15; Status DC Ondansetron HCl (Zofran) 4 mg STK-MED ONCE .ROUTE ; Start 10/30/16 at 14:14; Stop 10/30/16 at 14:15; Status DC Isoflurane (Isoflurane) 60 ml STK-MED ONCE IH ; Start 10/30/16 at 14:14; Stop at 14:15; Status DC Active Scripts Active Meclizine Hcl 25 Mg Tablet 1 Tab PO PRN TID PRN Prilosec Otc (Omeprazole Magnesium) 20 Mg Tablet.dr 1 Tab PO DAILY Zofran Odt (Ondansetron) 4 Mg Tab.rapdis 4 Mg PO BID PRN [place] 5-325 Tablet (Acetaminophen/Hydrocodone Bitart) 1 Each Tablet 1 Tab PO PRN Q6HRS PRN Allergies Allergies: Coded Allergies: No Known Drug Allergies (Unverified , 10/30/16) ROS General: No: Chills, Other (fevers) PSYCHOLOGICAL ROS: No: Anxiety, Depression Eyes: No Blurry vision, No Double vision HEENT: No: Heacaches, Sore Throat Hematological and Lymphatic: YES: Other (one episode of hematemesis ), No: Blood Clots Respiratory: YES: SOB with excertion (occasionally ), No: Cough Cardiovascular: No Chest Pain, No Palpitations Gastrointestinal: Yes Other (see hpi) Genitourinary: No Dysuria, No Hematuria Musculoskeletal: No Joint Pain Neurological: No Confusion, No Numbness/Tingling Skin: No Pruritus, No Rash Physical Exam General: Alert, Oriented X3, Cooperative, No acute distress HEENT: PERRLA, Mucous membr. moist/pink Lungs: Clear to auscultation, Normal air movement Heart: Regular rate, Normal S1, Normal S2, No murmurs Abdomen: Soft, Other (ND, moderate pain to epigastic, RUQ) Extremities: No clubbing, No cyanosis Skin: No rashes, No breakdown Neuro: Normal speech, Sensation intact Psych/Mental Status: Mental status NL, Mood NL MUSCULOSKELETAL: No deformity, No swelling Vitals VITALS Vital Signs Date Time Temp Pulse Resp B/P (MAP) Pulse Ox O2 Delivery O2 Flow Rate FiO2 10/30/16 13:55 66 16 157/84 (108) 99 Room Air 10/30/16 10:30 98.3 98.3 Labs Labs Laboratory Tests Test 10/30/16 11:00 White Blood Count 5.6 x10^3/uL (4.0-11.0) Red Blood Count 4.47 x10^6/uL (4.30-5.70) Hemoglobin 14.5 g/dL (13.0-17.5) Hematocrit 42.0 % (39.0-53.0) Mean Corpuscular Volume 94 fL (79-100) Mean Corpuscular Hemoglobin 32 pg (25-35) Mean Corpuscular Hemoglobin Concent 35 g/dL (31-37) Red Cell Distribution Width 13.0 % (11.5-14.5) Platelet Count 166 x10^3/uL (140-400) Neutrophils (%) (Auto) 66 % (31-73) Lymphocytes (%) (Auto) 26 % (24-48) Monocytes (%) (Auto) 5 % (0-9) Eosinophils (%) (Auto) 2 % (0-3) Basophils (%) (Auto) 1 % (0-3) Neutrophils # (Auto) 3.7 x10^3uL (1.8-7.7) Lymphocytes # (Auto) 1.5 x10^3/uL (1.0-4.8) Monocytes # (Auto) 0.3 x10^3/uL (0.0-1.1) Eosinophils # (Auto) 0.1 x10^3/uL (0.0-0.7) Basophils # (Auto) 0.0 x10^3/uL (0.0-0.2) Sodium Level 140 mmol/L (136-145) Potassium Level 4.4 mmol/L (3.5-5.1) Chloride Level 106 mmol/L (98-107) Carbon Dioxide Level 28 mmol/L (21-32) Anion Gap 6 (6-14) Blood Urea Nitrogen 19 mg/dL (8-26) Creatinine 0.9 mg/dL (0.7-1.3) Estimated GFR (Cockcroft-Gault) 102.8 Glucose Level 98 mg/dL (70-99) Calcium Level 8.8 mg/dL (8.5-10.1) Total Bilirubin 0.4 mg/dL (0.2-1.0) Direct Bilirubin 0.1 mg/dL (0.0-0.2) Aspartate Amino Transf (AST/SGOT) 16 U/L (15-37) Alanine Aminotransferase (ALT/SGPT) 27 U/L (16-63) Alkaline Phosphatase 49 U/L (46-116) Total Protein 6.9 g/dL (6.4-8.2) Albumin 3.8 g/dL (3.4-5.0) Lipase 142 U/L (73-393) Laboratory Tests Test 10/30/16 11:00 White Blood Count 5.6 x10^3/uL (4.0-11.0) Red Blood Count 4.47 x10^6/uL (4.30-5.70) Hemoglobin 14.5 g/dL (13.0-17.5) Hematocrit 42.0 % (39.0-53.0) Mean Corpuscular Volume 94 fL (79-100) Mean Corpuscular Hemoglobin 32 pg (25-35) Mean Corpuscular Hemoglobin Concent 35 g/dL (31-37) Red Cell Distribution Width 13.0 % (11.5-14.5) Platelet Count 166 x10^3/uL (140-400) Neutrophils (%) (Auto) 66 % (31-73) Lymphocytes (%) (Auto) 26 % (24-48) Monocytes (%) (Auto) 5 % (0-9) Eosinophils (%) (Auto) 2 % (0-3) Basophils (%) (Auto) 1 % (0-3) Neutrophils # (Auto) 3.7 x10^3uL (1.8-7.7) Lymphocytes # (Auto) 1.5 x10^3/uL (1.0-4.8) Monocytes # (Auto) 0.3 x10^3/uL (0.0-1.1) Eosinophils # (Auto) 0.1 x10^3/uL (0.0-0.7) Basophils # (Auto) 0.0 x10^3/uL (0.0-0.2) Sodium Level 140 mmol/L (136-145) Potassium Level 4.4 mmol/L (3.5-5.1) Chloride Level 106 mmol/L (98-107) Carbon Dioxide Level 28 mmol/L (21-32) Anion Gap 6 (6-14) Blood Urea Nitrogen 19 mg/dL (8-26) Creatinine 0.9 mg/dL (0.7-1.3) Estimated GFR (Cockcroft-Gault) 102.8 Glucose Level 98 mg/dL (70-99) Calcium Level 8.8 mg/dL (8.5-10.1) Total Bilirubin 0.4 mg/dL (0.2-1.0) Direct Bilirubin 0.1 mg/dL (0.0-0.2) Aspartate Amino Transf (AST/SGOT) 16 U/L (15-37) Alanine Aminotransferase (ALT/SGPT) 27 U/L (16-63) Alkaline Phosphatase 49 U/L (46-116) Total Protein 6.9 g/dL (6.4-8.2) Albumin 3.8 g/dL (3.4-5.0) Lipase 142 U/L (73-393) Assessment/Plan Assessment/Plan symptomatic cholelithiasis, pancreatitis previous ER visit hematemesis x 1, none since, hgb normal tobaccoism asthma plan lap keegan today OLE MAHAJAN MD 10/30/16 1521: CONSULT Allergies Allergies: Coded Allergies: No Known Drug Allergies (Unverified , 10/30/16) Assessment/Plan Assessment/Plan addendum i saw and examined him. i repeated christie portions of the consult 26 yo with 2nd episode of epigastric and ruq pain. first was a few days ago and he was seen in ER and dx with pancreatitis. pain resolved. returned this am. sharp, burning pain. associated with n/v. pain onset 1 hr after eating. pain resolved now abd soft nd min tender u/s reviewed NKDA a/p gallstone pancreatitis. hematemesis--GI consult placed. tobacco use to or for lap keegan, ioc, poss open. risks of bleeding, infection, need to convert to open, injury to bile duct/vasculature/hollow viscus, bile leak ( would require him to seek treatment in his local ER since he is not from the area and is from [place]), and remote risks of ami, cva, dvt/pe, pneumonia and were d/w pt. questions answered and he desires to proceed. JAY PARKER ELECTRICAL TEST TECHNICIAN October 30, 2016 14:37 OLE MAHAJAN MD October 30, 2016 15:21
--- NOTE | 2016-10-30 16:07 | ACF ---
Admission Forms Criteria GALLBLADDER OR BILE DUCT INFLAMMATION OR STONE Clinical Indications for Admission to Inpatient Care ( Place 'X' for any and all applicable criteria): Admission is indicated for patients with ANY ONE of the following(1)(2)(3)(4)(5) : [ ]I. Acute cholecystitis as indicated by ALL of the following: [ ]a) Right upper quadrant pain, mass, or tenderness [ ]b) Systemic signs of inflammation indicated by ANY ONE of the following: [ ]i) Fever [ ]ii) C-reactive protein level greater than 10 mg/L (95 nmol/L) [ ]iii) White blood cell count greater than 10,000/mm3 (10 x109/L) or less than 4000/mm3 (4 x109/L) [X]II. Inpatient admission required rather than observation care (Also use Gallbladder or Bile Duct Inflammation or Stone: Observation Care as appropriate) because of ANY ONE of the following: [ ]a) Common bile duct obstruction diagnosed [X]b) Vomiting that is severe or persistent [X]c) Severe pain requiring acute inpatient management [ ]d) Signs of intestinal obstruction or peritonitis [A] [ ]e) Severe electrolyte abnormalities requiring inpatient care [ ]f) Absent bowel sounds with complete ileus(8) [ ]g) Hemodynamic instability [ ]h) High fever or infection requiring inpatient admission as indicated by ANY ONE of the following (9): [ ]1) Appropriate outpatient or observation care antimicrobial Treatment. unavailable, not effective, or not feasible [ ]2) Temperature greater than 104.9 degrees F (40.5 degrees C) (oral) [ ]3) Temperature greater than 103.1 degrees F (39.5 degrees C) (oral) or less than 96.8 degrees F (36 degrees C) (rectal) that does not respond to all emergency treatment measures [ ]4) Documented bacteremia [ ]i) IV fluid to replace significant ongoing losses (greater than 3 L/m2 per day) [ ]j) Percutaneous or open drainage (eg, abscess, biliary tract) procedures [ ]k) Immediate inpatient surgery [ ]l) Other condition, treatment or monitoring requiring inpatient admission [ ]III. Acute cholangitis as indicated by ALL of the following(9)(10): [ ]a) Systemic signs of inflammation indicated by ANY ONE of the following: [ ]i) Fever [ ]ii) C-reactive protein level greater than 10 mg/L (95 nmol /L) [ ]iii) White blood cell count greater than 10,000/mm3 (10 x109/L) or less than 4000/mm3 (4 x109/L) [ ]b) Evidence of common bile duct disease indicated by ANY ONE of the following: [ ]i) Total serum bilirubin level greater than or equal to 2 mg/dL (34 micromoles/L) [ ]ii) Liver function test (alkaline phosphatase (ALP), r- glutamyltransferase (GGT), aspartate aminotransferase (AST), or alanine aminotransferase (ALT)) greater than 1.5 times the upper limit of normal[B] [ ]iii) Hepatobiliary imaging showing biliary dilatation or evidence of etiology (eg, stricture, stone, previously placed stent) Extended stay beyond goal length of stay may be needed for (1)(2)): [ ]a) Bacteremia or Hemodynamic instability [ ]b) Cholecystectomy [ ]c) Other surgical procedure(24) [ ]d) Percutaneous or endoscopic ultrasound-guided cholecystostomy The original [facility] content created by [facility] has been revised. The portions of the content which have been revised are identified through the use of italic text or in bold, and [facility] has neither reviewed nor approved the modified material. All other unmodified content is copyright [facility]. Please see references footnoted in the original [facility] edition 2016 Admission Criteria Met?: Yes SHARAD BARRAGAN October 30, 2016 16:07
[2016-10-30] MEDS ORDERED: GLYCOPYRROLATE 1 MG/5 ML VIAL. ONE (16:15)
[2016-10-30] MEDS ORDERED: NEOSTIGMINE METHYLSULFATE 5 MG/5 ML SYRINGE. ONE (16:15)
--- NOTE | 2016-10-30 16:18 | PDOC ---
BRIEF OPERATIVE NOTE Pre-Op Diagnosis gallstone pancreatitis lap keegan, ioc k raghu chung ebl 10 ivf 1100 kirstie well to rr stable. #[id number] OLE MAHAJAN MD October 30, 2016 16:18
--- NOTE | 2016-10-30 16:27 | RAD ---
Intraoperative cholangiogram, 10/30/2016: History: Cholecystectomy 2 spot films surgery are presented for review. Contrast has been injected into the cystic duct remnant. 0.1 minutes of fluoroscopy time was utilized. There is good flow of contrast into the duodenum at the ampulla. No filling defect is seen in the common bile duct to suggest a retained calculus. There is reflux of contrast into a portion of the pancreatic duct which is unremarkable. The intrahepatic bile ducts are incompletely opacified. There is contrast extravasation in the gallbladder fossa region. This may be on a technical basis related to the cystic duct insertion site. A biliary leak cannot be entirely excluded.
[2016-10-30] MEDS ORDERED: SEVOFLURANE 61 TO 120 MINUTES. IH ONE (16:29)
[2016-10-30] MEDS: fentaNYL PF VIAL 100 MCG/2 ML VIAL IV PRN ×4 (16:39→17:04)
[2016-10-30] MEDS: oxyCODONE/APAP 5/325 1 TAB TABLET PO PRN (20:37)
--- NOTE | 2016-10-30 21:32 | OP ---
DATE OF SURGERY: 10/30/2016 PREOPERATIVE DIAGNOSIS: Gallstone pancreatitis. POSTOPERATIVE DIAGNOSIS: Gallstone pancreatitis. PROCEDURE: Laparoscopic cholecystectomy with intraoperative cholangiogram. SURGEON: Ole Mahajan MD ANESTHESIA: General. ESTIMATED BLOOD LOSS: 10 mL. IV FLUIDS: 1100 mL. INDICATIONS: The patient is a 26-year-old male who presented to the [facility] ER a couple days ago, was diagnosed with pancreatitis, had elevated lipase. He was discharged home. He returns with abdominal pain. His lipase was normal, but ultrasound demonstrate cholelithiasis. Based on his recent history of pancreatitis in the presence of gallstones, he was diagnosed with gallstone pancreatitis. His pain was improved and he was taken to the operating room for cholecystectomy. FINDINGS: Intraoperative cholangiogram showed no filling defect. DESCRIPTION OF PROCEDURE: After informed consent was obtained, the patient was taken to the operating room and placed in supine position. After adequate induction of general anesthetic, he was prepped and draped in usual sterile fashion. An umbilical skin incision was made with a scalpel, subcutaneous tissues with a hemostat. [facility] was used to grab the fascia and lift it anteriorly. Veress was used to gain access to the peritoneal cavity. Low opening pressures confirmed intraperitoneal placement of the Veress. Pneumoperitoneum to 15 mmHg was established followed by placement of 5 mm port. A 5-mm 30-degree lens was inserted, which revealed good port placement. No evidence of entry trauma. He was placed head up, rotated towards his left. Three additional ports were placed under direct vision. The sites were injected with local anesthetic. Skin incisions were made and then an epigastric 12 mm and two 5 mm right lateral incisions were placed. The gallbladder was grasped at the fundus and lifted over the liver and slightly towards the right. The infundibulum was retracted towards the right and towards his toes to open the triangle of Calot. There was no evidence of acute cholecystitis and no inflammatory reaction around the gallbladder. [place] dissector was used to dissect out the triangle of Calot. At the completion of dissection, 2 structures were seen leading directly to the gallbladder, one was a cystic artery, one was a cystic duct. The artery branch into an anterior and a posterior branch. Two clips were placed on the anterior branch proximally and 1 distally and then the anterior branch was divided sharply. A clip was placed on the gallbladder adjacent to the cystic duct. Ductotomy was made with scissors. Intraoperative cholangiogram showed free flow of contrast, the cystic duct, common bile duct, right hepatic, takeoff of the left hepatic and free flow of contrast into the duodenum with no filling defects. The pancreatic duct was filled and the cholangiogram was therefore stopped. No filling defects were noted. The cholangiogram was interpreted as normal, is completed. The catheter was withdrawn. Three clips were placed on the cystic duct distal to the ductotomy. Ductotomy was completed with scissors. The posterior branch of the cystic artery was controlled with clips. The gallbladder was removed from the bed of liver with cautery and placed in a laparoscopic bag and brought out through the epigastric incision. The right upper quadrant was irrigated. Irrigant returned clear. No bleeding or bile leakage noted. Fascial closure device was used to close the fascia at the epigastric incision. One final look at the right upper quadrant revealed it to continue to be hemostatic. The ports removed under direct vision. They were hemostatic, pneumoperitoneum was desufflated. Skin incisions were closed with 4-0 Monocryl in subcuticular fashion. Sterile dressings were placed. He tolerated the procedure well. There were no apparent complications. He was then transferred to stable condition to the recovery room. OLE MAHAJAN MD DR: ANDREA/homero JOB#: [id number] / [id number] FERNANDA Power MD MTDD
[2016-10-30] MEDS: FAMOTIDINE 20 MG/2 ML VIAL IVP SCH (22:22)
[2016-10-31] MEDS: oxyCODONE/APAP 5/325 1 TAB TABLET PO PRN ×3 (00:53→09:24)
[2016-10-31 03:25] VITALS: BP 136/70
[2016-10-31 07:00] VITALS: BP 150/71
[2016-10-31] MEDS: FAMOTIDINE 20 MG/2 ML VIAL IVP SCH (08:39)
--- NOTE | 2016-10-31 09:12 | PDOC ---
JAY [employer] 10/31/16 0912: SURGICAL PROGRESS NOTE Subjective Tolerating diet ambulating feeling much better no fever hematemesis Vital Signs Vital Signs Date Time Temp Pulse Resp B/P (MAP) Pulse Ox O2 Delivery O2 Flow Rate FiO2 10/31/16 07:00 97.9 59 18 150/71 (97) 98 Room Air 97.9 10/31/16 05:56 2.0 I&O Intake and Output 10/31/16 07:00 Intake Total 2549 ml Output Total 10 ml Balance 2539 ml Intake Oral 120 ml IV Total 2429 ml Output Estimated Blood Loss 10 ml # Voids 5 General: Alert, Oriented X3, Cooperative, No acute distress Abdomen: Soft, Other (ND, lap dressings dry ) Labs Laboratory Tests Test 10/30/16 11:00 10/30/16 16:46 White Blood Count 5.6 x10^3/uL (4.0-11.0) Red Blood Count 4.47 x10^6/uL (4.30-5.70) Hemoglobin 14.5 g/dL (13.0-17.5) Hematocrit 42.0 % (39.0-53.0) Mean Corpuscular Volume 94 fL (79-100) Mean Corpuscular Hemoglobin 32 pg (25-35) Mean Corpuscular Hemoglobin Concent 35 g/dL (31-37) Red Cell Distribution Width 13.0 % (11.5-14.5) Platelet Count 166 x10^3/uL (140-400) Neutrophils (%) (Auto) 66 % (31-73) Lymphocytes (%) (Auto) 26 % (24-48) Monocytes (%) (Auto) 5 % (0-9) Eosinophils (%) (Auto) 2 % (0-3) Basophils (%) (Auto) 1 % (0-3) Neutrophils # (Auto) 3.7 x10^3uL (1.8-7.7) Lymphocytes # (Auto) 1.5 x10^3/uL (1.0-4.8) Monocytes # (Auto) 0.3 x10^3/uL (0.0-1.1) Eosinophils # (Auto) 0.1 x10^3/uL (0.0-0.7) Basophils # (Auto) 0.0 x10^3/uL (0.0-0.2) Sodium Level 140 mmol/L (136-145) Potassium Level 4.4 mmol/L (3.5-5.1) Chloride Level 106 mmol/L (98-107) Carbon Dioxide Level 28 mmol/L (21-32) Anion Gap 6 (6-14) Blood Urea Nitrogen 19 mg/dL (8-26) Creatinine 0.9 mg/dL (0.7-1.3) Estimated GFR (Cockcroft-Gault) 102.8 Glucose Level 98 mg/dL (70-99) Calcium Level 8.8 mg/dL (8.5-10.1) Total Bilirubin 0.4 mg/dL (0.2-1.0) Direct Bilirubin 0.1 mg/dL (0.0-0.2) Aspartate Amino Transf (AST/SGOT) 16 U/L (15-37) Alanine Aminotransferase (ALT/SGPT) 27 U/L (16-63) Alkaline Phosphatase 49 U/L (46-116) Total Protein 6.9 g/dL (6.4-8.2) Albumin 3.8 g/dL (3.4-5.0) Lipase 142 U/L (73-393) Glucose (Fingerstick) 99 mg/dL (70-99) Laboratory Tests Test 10/30/16 11:00 10/30/16 16:46 White Blood Count 5.6 x10^3/uL (4.0-11.0) Red Blood Count 4.47 x10^6/uL (4.30-5.70) Hemoglobin 14.5 g/dL (13.0-17.5) Hematocrit 42.0 % (39.0-53.0) Mean Corpuscular Volume 94 fL (79-100) Mean Corpuscular Hemoglobin 32 pg (25-35) Mean Corpuscular Hemoglobin Concent 35 g/dL (31-37) Red Cell Distribution Width 13.0 % (11.5-14.5) Platelet Count 166 x10^3/uL (140-400) Neutrophils (%) (Auto) 66 % (31-73) Lymphocytes (%) (Auto) 26 % (24-48) Monocytes (%) (Auto) 5 % (0-9) Eosinophils (%) (Auto) 2 % (0-3) Basophils (%) (Auto) 1 % (0-3) Neutrophils # (Auto) 3.7 x10^3uL (1.8-7.7) Lymphocytes # (Auto) 1.5 x10^3/uL (1.0-4.8) Monocytes # (Auto) 0.3 x10^3/uL (0.0-1.1) Eosinophils # (Auto) 0.1 x10^3/uL (0.0-0.7) Basophils # (Auto) 0.0 x10^3/uL (0.0-0.2) Sodium Level 140 mmol/L (136-145) Potassium Level 4.4 mmol/L (3.5-5.1) Chloride Level 106 mmol/L (98-107) Carbon Dioxide Level 28 mmol/L (21-32) Anion Gap 6 (6-14) Blood Urea Nitrogen 19 mg/dL (8-26) Creatinine 0.9 mg/dL (0.7-1.3) Estimated GFR (Cockcroft-Gault) 102.8 Glucose Level 98 mg/dL (70-99) Calcium Level 8.8 mg/dL (8.5-10.1) Total Bilirubin 0.4 mg/dL (0.2-1.0) Direct Bilirubin 0.1 mg/dL (0.0-0.2) Aspartate Amino Transf (AST/SGOT) 16 U/L (15-37) Alanine Aminotransferase (ALT/SGPT) 27 U/L (16-63) Alkaline Phosphatase 49 U/L (46-116) Total Protein 6.9 g/dL (6.4-8.2) Albumin 3.8 g/dL (3.4-5.0) Lipase 142 U/L (73-393) Glucose (Fingerstick) 99 mg/dL (70-99) Assessment/Plan s/p lap keegan Ok to dc from surgical pov discussed signs that would require ER visit([place] and will not be following up with us) Problems: DEMOND HEART MD 10/31/16 1058: SURGICAL PROGRESS NOTE Assessment/Plan as above Problems: JAY [employer] October 31, 2016 09:12 DEMOND HEART MD October 31, 2016 10:58
--- NOTE | 2016-10-31 10:04 | PDOC2 ---
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 Evaluated in the ER a few days ago for dizziness and n/v. Diagnosed w/ pancreatitis based on elevated lipase (1096), discharged w/ Prilosec, Zofran, Alma, and Meclizine. Reports emesis x 5 over a couple days, once w/ red blood , about a coffee mug full. Also had some epigastric and RUQ pain. Returned to ER yesterday, US showed gallstones, + York's sign, and ?cholecystitis. Admitted, underwent lap cholecystectomy yesterday afternoon. Feeling better today, no recurrent hematemesis, n/v. Has some incisional pain. Denies reflux/ heartburn/dyspepsia, diarrhea, constipation, melena, hematochezia. No previous EGD or colonoscopy. No NSAID use. 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 Hgb has remained WNL, lipase also WNL this admission, along w/ LFTs. PMH: PMH: asthma, left hand fracture FH: Family History: Other (ulcers and pancreatitis - grandmother, cirrhosis - father (contracted in [facility])) Social History: Smoke: <1 pack per day ALCOHOL: occassional Drugs: Marijuana ROS: GEN: Denies fevers, chills, sweats HEENT: Denies blurred vision, sore throat CV: Denies chest pain RESP: Denies shortness of air, cough GI: Per HPI : Denies hematuria, dysuria ENDO: Denies weight changes NEURO: +dizziness MSK: Denies weakness, joint pain/swelling SKIN: Denies jaundice, pruritus Vitals: Vitals: Vital Signs Date Time Temp Pulse Resp B/P (MAP) Pulse Ox O2 Delivery O2 Flow Rate FiO2 10/31/16 09:24 20 98 Room Air 10/31/16 07:00 97.9 59 150/71 (97) 97.9 10/31/16 05:56 2.0 Labs: Labs: Laboratory Tests Test 10/30/16 11:00 10/30/16 16:46 White Blood Count 5.6 x10^3/uL (4.0-11.0) Red Blood Count 4.47 x10^6/uL (4.30-5.70) Hemoglobin 14.5 g/dL (13.0-17.5) Hematocrit 42.0 % (39.0-53.0) Mean Corpuscular Volume 94 fL (79-100) Mean Corpuscular Hemoglobin 32 pg (25-35) Mean Corpuscular Hemoglobin Concent 35 g/dL (31-37) Red Cell Distribution Width 13.0 % (11.5-14.5) Platelet Count 166 x10^3/uL (140-400) Neutrophils (%) (Auto) 66 % (31-73) Lymphocytes (%) (Auto) 26 % (24-48) Monocytes (%) (Auto) 5 % (0-9) Eosinophils (%) (Auto) 2 % (0-3) Basophils (%) (Auto) 1 % (0-3) Neutrophils # (Auto) 3.7 x10^3uL (1.8-7.7) Lymphocytes # (Auto) 1.5 x10^3/uL (1.0-4.8) Monocytes # (Auto) 0.3 x10^3/uL (0.0-1.1) Eosinophils # (Auto) 0.1 x10^3/uL (0.0-0.7) Basophils # (Auto) 0.0 x10^3/uL (0.0-0.2) Sodium Level 140 mmol/L (136-145) Potassium Level 4.4 mmol/L (3.5-5.1) Chloride Level 106 mmol/L (98-107) Carbon Dioxide Level 28 mmol/L (21-32) Anion Gap 6 (6-14) Blood Urea Nitrogen 19 mg/dL (8-26) Creatinine 0.9 mg/dL (0.7-1.3) Estimated GFR (Cockcroft-Gault) 102.8 Glucose Level 98 mg/dL (70-99) Calcium Level 8.8 mg/dL (8.5-10.1) Total Bilirubin 0.4 mg/dL (0.2-1.0) Direct Bilirubin 0.1 mg/dL (0.0-0.2) Aspartate Amino Transf (AST/SGOT) 16 U/L (15-37) Alanine Aminotransferase (ALT/SGPT) 27 U/L (16-63) Alkaline Phosphatase 49 U/L (46-116) Total Protein 6.9 g/dL (6.4-8.2) Albumin 3.8 g/dL (3.4-5.0) Lipase 142 U/L (73-393) Glucose (Fingerstick) 99 mg/dL (70-99) Allergies: Coded Allergies: No Known Drug Allergies (Unverified , 10/30/16) Medications: Current Medications Medications (Trade) Dose Ordered Sig/Wilfred Route PRN Reason Start Time Stop Time Status Last Admin Dose Admin Ondansetron HCl (Zofran) 4 mg 1X ONCE IV 10/30/16 11:15 10/30/16 11:16 DC 10/30/16 11:55 Sodium Chloride 1,000 ml @ 1,000 mls/hr 1X ONCE IV 10/30/16 11:15 10/30/16 12:14 DC 10/30/16 11:55 Famotidine (Pepcid) 20 mg 1X ONCE IVP 10/30/16 11:15 10/30/16 11:16 DC 10/30/16 11:56 Fentanyl Citrate (Fentanyl 2ml Vial) 50 mcg 1X ONCE IV 10/30/16 11:15 10/30/16 11:16 DC 10/30/16 11:55 Morphine Sulfate 4 mg PRN Q2HR PRN IV PAIN 10/30/16 12:45 10/31/16 12:44 10/30/16 17:55 Sodium Chloride 1,000 ml @ 125 mls/hr 1X ONCE IV 10/30/16 12:45 10/30/16 20:44 DC 10/30/16 13:43 Fentanyl Citrate (Fentanyl 2ml Vial) 50 mcg PRN Q5MIN PRN IV MODERATE PAIN 10/30/16 13:15 10/31/16 13:14 10/30/16 17:04 Prochlorperazine Edisylate (Compazine) 5 mg PACU PRN PRN IV NAUSEA, MRX1 10/30/16 13:15 10/31/16 13:14 10/30/16 17:02 Famotidine (Pepcid) 20 mg BID IVP 10/30/16 21:00 10/31/16 08:39 Iohexol (Omnipaque 300 Mg/ml) 50 ml STK-MED ONCE .ROUTE 10/30/16 13:13 10/30/16 13:14 DC 10/30/16 15:56 Bupivacaine HCl/ Epinephrine Bitart (Marcaine-Epi 0.5%-1:911940) 50 ml STK-MED ONCE .ROUTE 10/30/16 13:15 10/30/16 13:16 DC 10/30/16 15:40 Nicotine (Nicoderm Cq 21mg) 1 patch PRN DAILY PRN TD SMOKING CESSATION 10/30/16 13:45 10/30/16 17:54 Cefazolin Sodium/ Dextrose 50 ml @ 100 mls/hr 1X PREOP PRN 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 There is mild thickened appearance of the gallbladder wall. Examination is positive ultrasonographic evidence of York's and however no evidence of pericholecystic fluid identified. Cholecystitis is not completely excluded. IOC There is good flow of contrast into the duodenum at the ampulla. No filling defect is seen in the common bile duct to suggest a retained calculus. There is reflux of contrast into a portion of the pancreatic duct which is unremarkable. The intrahepatic bile ducts are incompletely opacified. There is contrast extravasation in the gallbladder fossa region. This may be on a technical basis related to the cystic duct insertion site. A biliary leak cannot be entirely excluded. PE: GEN: NAD, standing up in room HEENT: Atraumatic, PERRL LUNGS: CTAB HEART: RRR ABD: incisional tenderness, BS+ EXTREMITY: No edema SKIN: No rashes, no jaundice NEURO/PSYCH: A & O 3 A/P: A/P: N/v, upper abd pain, gallstone pancreatitis, s/p lap keegan 10/30/16 Hematemesis - once prior to admission, resolved -- Improved. ?MW tear Would like to DC today, okay per GI w/ normal Hgb and no recurrent hematemesis. Has Prilosec from first ER visit - he will continue this. ALEXI HICKMAN October 31, 2016 10:04
[2016-10-31] MEDS ORDERED: HYDR-971 PO (10:17)
--- NOTE | 2016-10-31 12:48 | PDOC3 ---
Discharge Summary Visit Information Date of Admission: October 30, 2016 Date of Discharge: October 31, 2016 Admitting Diagnosis: abd pain Final Diagnosis gallstone pancreatitis cholecystitis nausea and vomiting hematemesis, small, tobaccoism, Brief Hospital Course Allergies Allergies Coded Allergies Type Severity Reaction Last Updated Verified No Known Drug Allergies 10/30/16 No Vital Signs Vital Signs Date Time Temp Pulse Resp B/P (MAP) Pulse Ox O2 Delivery O2 Flow Rate FiO2 10/31/16 09:24 20 98 Room Air 10/31/16 07:00 97.9 59 150/71 (97) 97.9 10/31/16 05:56 2.0 Lab Results Laboratory Tests Test 10/30/16 11:00 10/30/16 16:46 White Blood Count 5.6 x10^3/uL (4.0-11.0) Red Blood Count 4.47 x10^6/uL (4.30-5.70) Hemoglobin 14.5 g/dL (13.0-17.5) Hematocrit 42.0 % (39.0-53.0) Mean Corpuscular Volume 94 fL (79-100) Mean Corpuscular Hemoglobin 32 pg (25-35) Mean Corpuscular Hemoglobin Concent 35 g/dL (31-37) Red Cell Distribution Width 13.0 % (11.5-14.5) Platelet Count 166 x10^3/uL (140-400) Neutrophils (%) (Auto) 66 % (31-73) Lymphocytes (%) (Auto) 26 % (24-48) Monocytes (%) (Auto) 5 % (0-9) Eosinophils (%) (Auto) 2 % (0-3) Basophils (%) (Auto) 1 % (0-3) Neutrophils # (Auto) 3.7 x10^3uL (1.8-7.7) Lymphocytes # (Auto) 1.5 x10^3/uL (1.0-4.8) Monocytes # (Auto) 0.3 x10^3/uL (0.0-1.1) Eosinophils # (Auto) 0.1 x10^3/uL (0.0-0.7) Basophils # (Auto) 0.0 x10^3/uL (0.0-0.2) Sodium Level 140 mmol/L (136-145) Potassium Level 4.4 mmol/L (3.5-5.1) Chloride Level 106 mmol/L (98-107) Carbon Dioxide Level 28 mmol/L (21-32) Anion Gap 6 (6-14) Blood Urea Nitrogen 19 mg/dL (8-26) Creatinine 0.9 mg/dL (0.7-1.3) Estimated GFR (Cockcroft-Gault) 102.8 Glucose Level 98 mg/dL (70-99) Calcium Level 8.8 mg/dL (8.5-10.1) Total Bilirubin 0.4 mg/dL (0.2-1.0) Direct Bilirubin 0.1 mg/dL (0.0-0.2) Aspartate Amino Transf (AST/SGOT) 16 U/L (15-37) Alanine Aminotransferase (ALT/SGPT) 27 U/L (16-63) Alkaline Phosphatase 49 U/L (46-116) Total Protein 6.9 g/dL (6.4-8.2) Albumin 3.8 g/dL (3.4-5.0) Lipase 142 U/L (73-393) Glucose (Fingerstick) 99 mg/dL (70-99) Laboratory Tests Test 10/30/16 16:46 Glucose (Fingerstick) 99 mg/dL (70-99) Brief Hospital Course Mr. Crowley is a 26 old admit for above, acute abd pain taken to OR by trina Dawson/ noah I[facility], pt felt improved, DC home Discharge Information Condition at Discharge: Improved Follow Up: Weeks Disposition/Orders: D/C to Home Scheduled Omeprazole Magnesium (Prilosec Otc), 1 TAB PO DAILY Scheduled PRN Hydrocodone/Apap 5-325 ([place] 5-325 Tablet), 1 TAB PO PRN Q6HRS PRN for PAIN Meclizine Hcl (Meclizine Hcl), 1 TAB PO PRN TID PRN for VERTIGO Ondansetron (Zofran Odt), 4 MG PO BID PRN for NAUSEA/VOMITING FERNANDA VALLES MD October 31, 2016 12:48
--- NOTE | 2016-11-04 15:20 | PATHOLOGY ---
PATHOLOGY REPORT * * * * * * * * FINAL DIAGNOSIS: Gallbladder, laparoscopic cholecystectomy: - Polypoid cholesterolosis, focal. - Chronic cholecystitis. COMMENT: There are no calculi identified within the gallbladder lumen or specimen container. There is no evidence of malignancy. REPORT ELECTRONICALLY SIGNED BY: Franki Cerda M.D. DATE/TIME: 11/04/2016 15:19 * * * * * * * * GROSS PATHOLOGY: Received in formalin labeled "Allan Vernon, gallbladder with contents," is a 6.7 x 3.0 x 1.0 cm, intact gallbladder with bile-stained serosal surfaces. Opening the gallbladder reveals a velvety, bile-stained mucosa displaying several papillary excrescences ranging in size from 0.3 to 0.5 cm, and an average wall thickness of 0.1 cm. Calculi are not present and no masses are noted grossly. [employer] sections from the body and fundus are submitted along with the proximal margin in cassette A1. (CAA; 11/01/2016) INITIAL CPT CODE(S): A; 25713 Professional services [place] [address] Technical services performed by [facility] at [address] [place] [address] [address], [place] [address]. SPECIMEN(S) RECEIVED: A.Gallbladder with contents CLINICAL HISTORY: Symptomatic cholelithiasis PATIENT: ALLAN VERNON /AGE: 11 1990 (Age: 26) PATIENT #: [id number] ALT CASE #: SPECIMEN COLLECTION DATE: 10/30/2016 SPECIMEN RECEIVED DATE: 10/31/2016 [facility] - [id number] [place] [address] - PHONE: [phone] * * * END OF REPORT * * *
== END 2016-10-31 10:55 | disposition home or self-care (01) | DRG 417 ==
LOC: ER 10:25 → 4 NORTH 13:53 → ER 13:55
PROVIDERS: ADMIT Internal Medicine; ATTEND Internal Medicine
PROC: BF111ZZ Fluoroscopy of Biliary and Pancreatic Ducts using Low Osmolar Contrast (ICD-10-PCS; 2016-10-30)
PROC: 0FT44ZZ Resection of Gallbladder, Percutaneous Endoscopic Approach (ICD-10-PCS; principal; 2016-10-30 14:30)
DX: K85.10 Biliary acute pancreatitis without necrosis or infection (principal); K22.6 Gastro-esophageal laceration-hemorrhage syndrome; K92.0 Hematemesis; F17.210 Nicotine dependence, cigarettes, uncomplicated; J45.909 Unspecified asthma, uncomplicated; K66.8 Other specified disorders of peritoneum; Y93.H3 Activity, building and construction; Z82.49 Family history of ischemic heart disease and other diseases of the circulatory system; Z83.3 Family history of diabetes mellitus
CPT/HCPCS: 36415; 74300; 76705; 80048; 80076; 82947; 83690; 85027; 88304; 96361; 96374; 96375; C1782; J0690; J0780; J1100; J2270; J2405; J2704; J2710; J3010; J3490; J7030; J7120; Q9967; S0028; 99285-25